=== PATIENT | male | born 2000 | race Caucasian/White ===

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

== ENCOUNTER 2022-11-07 19:29 | Emergency (ER) | payer OTHER ==
[~2022-11-07] VITALS: Ht 185.4 cm; Wt 79.4 kg
[2022-11-07] MEDS ORDERED: SODIUM CHLORIDE 0.9% 1000ML 1,000 ML IV STA (20:08)
== END 2022-11-07 20:25 | disposition home or self-care (01) ==
LOC: ER 19:36
DX: F15.10 Other stimulant abuse, uncomplicated (principal); R94.31 Abnormal electrocardiogram [ECG] [EKG]; F17.210 Nicotine dependence, cigarettes, uncomplicated
CPT/HCPCS: 93005; 99282